=== PATIENT | female | born 1970 | race Caucasian/White ===

== ENCOUNTER 2017-05-10 09:34 | Outpatient (CLI) | payer BC | END 2017-05-10 09:35 | disposition home or self-care (01) | LOC: BICMAMMO 09:34 | PROVIDERS: ATTEND Obstetrics & Gynecology | DX: N63.0 Unspecified lump in unspecified breast (principal) | CPT/HCPCS: 77066; G0279 ==

== ENCOUNTER 2017-08-10 08:40 | Outpatient (CLI) | payer BC | END 2017-08-10 08:41 | disposition home or self-care (01) | LOC: BICULT 08:40 | PROVIDERS: ATTEND Obstetrics & Gynecology | DX: N63.10 Unspecified lump in the right breast, unspecified quadrant (principal) ==

== ENCOUNTER 2022-07-08 11:23 | Outpatient (CLI) | payer BC | END 2022-07-08 11:24 | disposition home or self-care (01) | LOC: SCSCT 11:23 | PROVIDERS: ATTEND Neurological Surgery | DX: D33.3 Benign neoplasm of cranial nerves (principal); Z98.890 Other specified postprocedural states | CPT/HCPCS: 70450 ==